=== PATIENT | female | born 1955 | race Caucasian/White ===

== ENCOUNTER 2017-01-27 17:18 | Emergency (ER) | payer OTHER ==
[2017-01-27 20:04] VITALS: BP 150/85
[2017-01-27] MEDS ORDERED: ValACYclovir (*) 1 GM TAB PO ONE (20:27)
[2017-01-27] MEDS ORDERED: Gabapentin CAP(*) 300 MG PO ONE (20:28)
[2017-01-27] MEDS ORDERED: Acyclovir TAB* 400 MG PO ONE ×2 (21:27→21:28)
[2017-01-27] MEDS ORDERED: Acyclovir CAP* 200 MG PO ONE ×3 (21:57→22:17)
--- NOTE | 2017-01-31 06:49 | UC ---
Skin Complaint HPI - HPI Summary HPI Summary: Pt here w/ skin rash x 4 days. Started as a red painful "pimple" on Lt upper thigh. Yesterday, she had more painful "pimples" break out along her lateral thigh and buttock on this side. She has been quite fatigued leading up to this and continues to feel fatigued. No fever, chills, N/V/D. H/o chix pox. Recently , had a dental procedure done which caused a great deal of anxiety for her. No sick contacts. Has not had zoster vaccine. - History of Current Complaint Chief Complaint: UCRash Time Seen by Provider: 01/27/17 20:07 Stated Complaint: RASH W PAIN Hx Obtained From: Patient Hx Last Menstrual Period: uterine ablation Pain Intensity: 2 Pain Scale Used: 0-10 Numeric - Allergy/Home Medications Allergies/Adverse Reactions: Allergies Allergy/AdvReac Type Severity Reaction Status Date / Time No Known Allergies Allergy Verified 01/27/17 20:03 Home Medications: Home Medications Anti-Anxiety Med* PRN 01/27/17 [History] FLUoxetine CAP* [PROzac CAP*] 20 mg PO DAILY 01/27/17 [History Confirmed ] Review of Systems Constitutional: Fatigue - see HPI Skin: Rash - see HPI Eyes: Negative ENT: Negative Respiratory: Negative Cardiovascular: Negative Gastrointestinal: Negative Genitourinary: Negative Motor: Negative Neurovascular: Negative Musculoskeletal: Negative Neurological: Negative Psychological: Anxious All Other Systems Reviewed And Are Negative: Yes PMH/Surg Hx/FS Hx/Imm Hx Previously Healthy: Yes Other History Of: Negative For: Anticoagulant Therapy - Surgical History Surgical History: Yes Surgery Procedure, Year, and Place: 1977 APPENDECTOMY,. 1990 LEFT BREAST BIOPSY ,. 1995 RIGHT SHOULDER ROTATOR CUFF REPAIR, [facility] [place]. 1998 LEFT KNEE MENISCAL TEAR REPAIR, [facility] [place]. 1999 A1 [place] RELEASE RIGHT RING FINGER, [facility] [place]. 2007 UTERINE ABLATION, [place]. 2009 COLONOSCOPY WITH POLYP REMOVAL,. 2010 RIGHT KNEE SYNOVIAL OSTEOMATOSIS, [facility]. 2016 RIGHT WRIST ORIF - Family History Known Family History: Positive: None - Social History Occupation: Employed Full-time Lives: Alone Alcohol Use: Daily Alcohol Amount: 2 glasses a night of wine Substance Use Type: None Smoking Status (MU): Never Smoked Tobacco Household Exposure Type: Cigarettes - Immunization History Most Recent Tetanus Shot: not sure but thinks it is utd Physical Exam Triage Information Reviewed: Yes Appearance: Well-Appearing - although is quite concerned, No Pain Distress, Well -Nourished Vital Signs: Initial Vital Signs Temp 98.5 F 01/27/17 19:57 Pulse 81 01/27/17 19:57 Resp 16 01/27/17 19:57 BP 150/85 01/27/17 19:57 Pulse Ox 98 01/27/17 19:57 Eye Exam: Normal ENT Exam: Normal Neck exam: Normal Neck: Positive: No Lymphadenopathy Respiratory Exam: Normal Cardiovascular Exam: Normal Musculoskeletal Exam: Normal Musculoskeletal: Positive: Strength Intact Neurological Exam: Normal Psychological Exam: Other - anxious Skin: Positive: rashes - erythematous papular/vesicular rash over Lt dermatome L3 - no crusting, no active drainage Course/Dx - Course Course Of Treatment: Pt here w/ new onset rash along dermatome L3 x 4 days w/ new lesions ID'd yesterday. She is within range of anti-viral tx because of most recent lesions. Offered tx initiation here today as pharmacies are closed - ordered valtrex which was later found to be unavailable in our pyxis. Then attempted to order acyclovir however only certain dose was available - when attempted to provide pt w/ a couple of doses to tx her through tomorrow morning when her pharmacy would be open, the pyxi revealed a limited supply. She was hence given a dose here tonight and one for 5 hours from now. She will start valtrex tomorrow morning for better compliance and outcomes. Gabapentin was also rx'd in house tonight for pain to take for neuropathic pain. This was also later found to be unavailable. Many apologies were made to the pt for these oversites and advised to take ibuprofen alternating with acetaminophen until she could potato picker gabapentin tomorrow. Explanation of how to take medication. Pt agrees w/ plan and will f/u w/ PCP later this week. - Diagnoses Provider Diagnoses: HZV, L3 - Physician Notification/Consults Discussed Patient Care With: Dr. Rivas Discharge - Discharge Plan Condition: Stable Disposition: HOME Prescriptions: Gabapentin CAP(*) [Neurontin 300 CAP(*)] 300 mg PO TID PRN #42 cap PRN Reason: Pain ValACYclovir (*) [Valtrex 1 GM(*)] 1 gm PO TID #20 tab Patient Education Materials: Shingles (ED) Forms: *Work Release Referrals: Leila Ruth MD [Primary Care Provider] - Additional Instructions: Rest, fluids, keep area covered. Avoid immunocompromised individuals (ie. women, cancer patients, infants) Start valtrex 5 hours after last acyclovir dose and complete course. You may take gabapentin for pain - if you only need 1 before bed, you do not need to take more. If you need 2 a day but not 3, you do not have to take 3. If pain is not controlled with 2 pills a day, you may take up to 3 pills per day. If you take this routinely for > 1 week, it is important that you taper down. Discuss with PCP. Follow-up with PCP at the end of the week for recheck. Call tomorrow to schedule appointment. *If you develop fever, chills, uncontrolled pain, go to ED
== END 2017-01-27 22:40 | disposition home or self-care (01) ==
LOC: UCEAST 17:18
DX: B02.9 Zoster without complications (principal)
CPT/HCPCS: 99212; A9270-GY; G0463

== ENCOUNTER 2017-04-27 10:34 | Emergency (ER) | payer OTHER ==
[2017-04-27 10:43] VITALS: BP 140/83
[2017-04-27] MEDS ORDERED: Ibuprofen TAB* 600 MG PO ONE (10:52)
--- NOTE | 2017-04-27 12:02 | RAD ---
Edited for charges. HISTORY: Right shoulder pain, status post fall COMPARISONS: None relevant VIEWS: 5, Frontal internal rotation, external rotation, outlet, and axillary views of the right shoulder with lateral views of the right scapula FINDINGS: BONE DENSITY: Normal. BONES: There is no displaced fracture. JOINTS: There is no arthropathy. ALIGNMENT: There is no dislocation. SOFT TISSUES: There are soft tissue calcifications along the greater tuberosity of the right humerus. OTHER FINDINGS: None. IMPRESSION: 1. SOFT TISSUE CALCIFICATIONS SUGGESTIVE OF A CALCIFIC TENDINOPATHY. 2. NO ACUTE OSSEOUS INJURY TO THE RIGHT SHOULDER OR TO THE RIGHT SCAPULA. IF SYMPTOMS PERSIST, RECOMMEND REPEAT IMAGING MTDD
--- NOTE | 2017-04-27 13:04 | UC ---
Edson Taylor Angela, scribed for Ramiro Cooley MD on 04/27/17 at 1056 . Upper Extremity HPI - HPI Summary HPI Summary: This pt is a 62 y/o female presenting to [facility] c/o right shoulder and right scapula pain s/p mechanical fall last night. Pt reports she was at a campfire and went to get another log in the log pile and tripped over a piece of furniture. She states she first hit her shoulder and heard a pop in her shoulder , landing flat on her back. Pt notes her pain radiates from her right shoulder up to her right side of neck. Her pain is aggravated by shoulder movement. Pt denies head strike, forearms pain, elbow pain, headache, SOB, chest pain. She has not taken any pain medications. PMHx: right shoulder rotator cuff repair. She is currently on Prozac. - History of Current Complaint Chief Complaint: UCUpperExtremity Stated Complaint: SHOULDER INJURY Hx Obtained From: Patient Hx Last Menstrual Period: uterine ablation Onset/Duration: Sudden Onset - s/p mechanical fall Pain Intensity: 8 Pain Scale Used: 0-10 Numeric Location Of Pain: Radiates To - right side of neck Aggravating Factor(s): Movement Alleviating Factor(s): Nothing Associated Signs And Symptoms: Positive: Other - NEGATIVE: headache, SOB, chest pain. Negative: Fever, Numbness/Tingling - Allergies/Home Medications Allergies/Adverse Reactions: Allergies Allergy/AdvReac Type Severity Reaction Status Date / Time No Known Allergies Allergy Verified 04/27/17 10:38 PMH/Surg Hx/FS Hx/Imm Hx Other Cardiovascular History: Heart murmurs, palpitations Other History Of: Negative For: Anticoagulant Therapy - Surgical History Surgical History: Yes Surgery Procedure, Year, and Place: 1977 APPENDECTOMY,. 1990 LEFT BREAST BIOPSY ,. 1995 RIGHT SHOULDER ROTATOR CUFF REPAIR, [facility] [place]. 1998 LEFT KNEE MENISCAL TEAR REPAIR, [facility] [place]. 1999 A1 [place] RELEASE RIGHT RING FINGER, [facility]. 2007 UTERINE ABLATION, [place]. 2009 COLONOSCOPY WITH POLYP REMOVAL,. 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 2016 RIGHT WRIST ORIF - Family History Known Family History: Positive: None - Social History Alcohol Use: Daily Alcohol Amount: 2 glasses a night of wine Substance Use Type: None Smoking Status (MU): Never Smoked Tobacco Household Exposure Type: Cigarettes - Immunization History Most Recent Tetanus Shot: not sure but thinks it is utd Review of Systems Constitutional: Negative Skin: Negative Eyes: Negative ENT: Negative Respiratory: Negative Cardiovascular: Negative Gastrointestinal: Negative Motor: Decreased ROM - at right shoulder Musculoskeletal: Other: - POSITIVE:right shoulder pain, right scapula pain Neurological: Negative Psychological: Negative All Other Systems Reviewed And Are Negative: Yes Physical Exam Triage Information Reviewed: Yes Vital Signs: Initial Vital Signs Temp 98.2 F 04/27/17 10:39 Pulse 80 04/27/17 10:39 Resp 16 04/27/17 10:39 BP 140/83 04/27/17 10:39 Pulse Ox 100 04/27/17 10:39 Vital Signs Reviewed: Yes - Additional Comments General: well-appearing, no pain distress Skin: warm, color reflects adequate perfusion, dry Head: normal Eyes: EOMI, [place] ENT: normal Neck: supple, nontender Respiratory: CTA, breath sounds present Cardiovascular: RRR Musculoskeletal: RUE: good ROM of hand, no tenderness in hand, wrist, and elbow. Clavicle is nontender. Pt is tender at right shoulder joint and upper border of right scapula. Neurological: normal, sensory/motor intact, A&O x3 Psychological: affect/mood appropriate Diagnostics - Radiology Right Shoulder XR Xray Interpretation: Positive (See Comments) - IMPRESSION: 1. Soft tissue calcifications suggestive of a calcific tendinopathy. 2. No acute osseous injury to the right shoulder or to the right scapula. If symptoms persist, recommend repeat imaging. ED physician has reviewed this radiology report and agrees. Radiology Interpretation Completed By: Radiologist Right Scapula XR Xray Interpretation: Positive (See Comments) - IMPRESSION: 1. Soft tissue calcifications suggestive of a calcific tendinopathy. 2. No acute osseous injury to the right shoulder or to the right scapula. If symptoms persist, recommend repeat imaging. ED physician has reviewed this radiology report and agrees. Radiology Interpretation Completed By: Radiologist Upper Extremity Course/Dx - Course Course Of Treatment: This pt is a 62 y/o female presenting to [facility] c/o right shoulder pain s/p mechanical fall last night. Pt reports she was at a campfire and went to get another log in the log pile and tripped over a piece of furniture. She states she first hit her shoulder and heard a pop in her shoulder , landing flat on her back. Pt notes her pain radiates from her right shoulder up to her right scapula and right side of neck. Her pain is aggravated by shoulder movement. Pt denies head strike, forearms pain, elbow pain, headache, SOB, chest pain. She has not taken any pain medications. PMHx: right shoulder rotator cuff repair. She is currently on Prozac. XR of shoulder and scapula show 1. Soft tissue calcifications suggestive of a calcific tendinopathy. 2. No acute osseous injury to the right shoulder or to the right scapula. If symptoms persist, recommend repeat imaging. ED physician has reviewed this radiology report and agrees. Elevated BP noted and advised to follow up with PCP. Medications reviewed. DISCUSSED X-RAY RESULTS. PATIENT WILL F/U WITH PMD AND THEN DETERMINE IF PT/ORTHO REFERAL IS ALSO NEEDED. MEDICATIONS REVIEWED. - Differential Dx/Diagnosis Provider Diagnoses: RIGHT SHOULDER/ROTATOR CUFF INJURY Discharge - Discharge Plan Condition: Stable Disposition: HOME Prescriptions: HYDROcodone/ACETAMIN 5-325 MG* [[place] 5-325 TAB*] 1 tab PO Q4H PRN #20 tab MDD 6 PRN Reason: Pain Naproxen Sodium [Naproxen Sodium ER 500 MG TAB] 500 mg PO BID PRN #20 tab PRN Reason: Pain Patient Education Materials: Rotator Cuff Injury (ED) Referrals: Leila Ruth MD [Primary Care Provider] - Additional Instructions: FOLLOW UP WITH YOUR DOCTOR. GET RECHECKED FOR ANY WORSENING OF YOUR CONDITION OR QUESTIONS OR CONCERNS. The documentation as recorded by the Edson roberts Angela accurately reflects the service I personally performed and the decisions made by me, Ramiro Cooley MD.
== END 2017-04-27 12:24 | disposition home or self-care (01) ==
LOC: UCEAST 10:34
DX: S46.091A Other injury of muscle(s) and tendon(s) of the rotator cuff of right shoulder, initial encounter (principal); W01.0XXA Fall on same level from slipping, tripping and stumbling without subsequent striking against object, initial encounter
CPT/HCPCS: 99212; A9270-GY; G0463

== ENCOUNTER 2017-06-23 16:57 | Emergency (ER) | payer OTHER ==
[2017-06-23 17:03] VITALS: BP 158/85
--- NOTE | 2017-06-23 17:11 | UC ---
Bite Injury/Animal HPI - HPI Summary HPI Summary: 62 belinda old female presents with complains of a tick bite on her stomach. - History of Current Complaint Chief Complaint: VIRAkin Stated Complaint: TICK BITE Time Seen by Provider: 06/23/17 17:08 Hx Obtained From: Patient Hx Last Menstrual Period: uterine ablation Severity Currently: Moderate Severity Initially: Moderate Onset/Duration: Sudden Onset Type of Bite: Animal - tick - Allergies/Home Medications Allergies/Adverse Reactions: Allergies Allergy/AdvReac Type Severity Reaction Status Date / Time No Known Allergies Allergy Verified 06/23/17 17:03 PMH/Surg Hx/FS Hx/Imm Hx Other History Of: Negative For: Anticoagulant Therapy - Surgical History Surgical History: Yes Surgery Procedure, Year, and Place: 1977 APPENDECTOMY,. 1990 LEFT BREAST BIOPSY ,. 1995 RIGHT SHOULDER ROTATOR CUFF REPAIR, [facility] [place]. 1998 LEFT KNEE MENISCAL TEAR REPAIR, [facility] [place]. 1999 A1 [place] RELEASE RIGHT RING FINGER, [facility] [place]. 2007 UTERINE ABLATION, [place]. 2009 COLONOSCOPY WITH POLYP REMOVAL,. 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 2016 RIGHT WRIST ORIF - Family History Known Family History: Positive: None - Social History Alcohol Use: Daily Alcohol Amount: 2 glasses a night of wine Substance Use Type: Prescribed Smoking Status (MU): Never Smoked Tobacco Household Exposure Type: Cigarettes - Immunization History Most Recent Tetanus Shot: not sure but thinks it is utd Review of Systems Constitutional: Negative Skin: Rash, Other - [place] bite Eyes: Negative ENT: Negative Respiratory: Negative Cardiovascular: Negative Gastrointestinal: Negative Genitourinary: Negative Motor: Negative Neurovascular: Negative Musculoskeletal: Negative Neurological: Negative Psychological: Negative All Other Systems Reviewed And Are Negative: Yes Physical Exam Triage Information Reviewed: Yes Vital Signs: Initial Vital Signs Temp 36.4 C 06/23/17 17:00 Pulse 89 06/23/17 17:00 Resp 12 06/23/17 17:00 BP 158/85 06/23/17 17:00 Pulse Ox 100 06/23/17 17:00 Vital Signs Reviewed: Yes Eye Exam: Normal ENT Exam: Normal Dental Exam: Normal Neck exam: Normal Neck: Positive: 1 Respiratory Exam: Normal Cardiovascular Exam: Normal Abdominal Exam: Normal Musculoskeletal Exam: Normal Neurological Exam: Normal Psychological Exam: Normal Skin: Positive: rashes - tick bite Bite Injury Course/Dx - Differential Dx/Diagnosis Provider Diagnoses: tick bite. rash Discharge - Discharge Plan Condition: Stable Disposition: HOME Patient Education Materials: Lyme Disease (ED), Tick Bite (ED) Referrals: Leila Ruth MD [Primary Care Provider] -
[2017-06-23] MEDS ORDERED: DOXYcycline CAP(*) 100 MG PO ONE (17:13)
[2017-06-24 11:21] LABS: Hematocrit 40 % (35-47); Hemoglobin 13.1 g/dl (12.0-16.0); Mean Corpuscular HGB Conc 33 g/dl (31-36); Mean Corpuscular Hemoglobin 32 pg (27-31); Mean Corpuscular Volume 96 fL (80-97); Mean Platelet Volume 11 um3 (7.4-10.4); Red Blood Count 4.13 10^6/ul (4.0-5.4); Red Cell Distribution Width 13 % (10.5-15); White Blood Count 6.6 10^3/ul (3.5-10.8)
[2017-06-24 11:28] LABS: Albumin 4.4 g/dL (3.2-5.2); BUN/Creatinine Ratio 30.2 (8-20); Calcium 9.8 mg/dL (8.6-10.3); EGFR Non-African American 96.4 (>60); Globulin 2.5 g/dL (2-4); Total Bilirubin 0.4 mg/dL (0.2-1.0); Total Protein 6.9 g/dL (6.4-8.9)
--- NOTE | 2017-06-24 18:42 | UC ---
Progress - Progress Note Progress Note: no acute changes.
== END 2017-06-23 17:49 | disposition home or self-care (01) ==
LOC: UCEAST 16:57
DX: S30.861A Insect bite (nonvenomous) of abdominal wall, initial encounter (principal); R21 Rash and other nonspecific skin eruption; W57.XXXA Bitten or stung by nonvenomous insect and other nonvenomous arthropods, initial encounter; Y93.9 Activity, unspecified; Y92.9 Unspecified place or not applicable; Z77.22 Contact with and (suspected) exposure to environmental tobacco smoke (acute) (chronic)
CPT/HCPCS: 36415; 80053; 85025; 86618; 99212; A9270-GY; G0463

== ENCOUNTER 2019-01-17 09:21 | Emergency (ER) | payer OTHER ==
[2019-01-17 09:31] VITALS: BP 163/96
--- NOTE | 2019-01-17 09:39 | UC ---
Hand/Wrist HPI - HPI Summary HPI Summary: 63 yo female s/p jcarlos injjury left wrist yesterday severe pain with attempts to move it she is right haded has not taken anything for pain - History Of Current Complaint Chief Complaint: UCUpperExtremity Stated Complaint: WRIST INJURY Time Seen by Provider: 01/17/19 09:35 Hx Obtained From: Patient Hx Last Menstrual Period: uterine ablation Onset/Duration: Sudden Onset Severity Initially: Severe Severity Currently: Severe Pain Intensity: 8 - with movement Pain Scale Used: 0-10 Numeric Character Of Pain: Sharp, Aching Aggravating Factor(s): Movement Alleviating Factor(s): Rest Associated Signs And Symptoms: Positive: Swelling Related History: Dominant Hand Right Hands: 1 - tender/swollen, distal n/v intact - Allergies/Home Medications Allergies/Adverse Reactions: Allergies Allergy/AdvReac Type Severity Reaction Status Date / Time No Known Allergies Allergy Verified 01/17/19 09:32 PMH/Surg Hx/FS Hx/Imm Hx Previously Healthy: Yes Other History Of: Negative For: Anticoagulant Therapy - Surgical History Surgical History: Yes Surgery Procedure, Year, and Place: 1977 APPENDECTOMY,. 1990 LEFT BREAST BIOPSY ,. 1995 RIGHT [place]OULD[place] ROTATOR CU[place] [facility] [place]. 1998 LEFT KNEE MENISCAL TEAR [place]PAIR[place] [facility] [place]. 1999 A1 [place] RELEASE RIGHT RING FINGER, [facility] [place]. 2007 UTERINE ABLATION, [place]. 2009 COLONOSCOPY WITH POLYP REMOVAL,. 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 2016 RIGHT WRIST ORIF - Family History Known Family History: Positive: Non-Contributory - Social History Alcohol Use: Daily Alcohol Amount: 2 glasses a night of wine Substance Use Type: None Smoking Status (MU): Never Smoked Tobacco Household Exposure Type: Cigarettes - Immunization History Most Recent Tetanus Shot: not sure but thinks it is utd Review of Systems All Other Systems Reviewed And Are Negative: Yes Constitutional: Positive: Negative Skin: Positive: Negative Eyes: Positive: Negative ENT: Positive: Negative Respiratory: Positive: Negative Cardiovascular: Positive: Negative Gastrointestinal: Positive: Negative Genitourinary: Positive: Negative Motor: Positive: Negative Neurovascular: Positive: Negative Musculoskeletal: Positive: Arthralgia - left wrist Neurological: Positive: Negative Psychological: Positive: Negative Physical Exam Triage Information Reviewed: Yes Appearance: Well-Appearing, No Pain Distress, Well-Nourished Vital Signs: Initial Vital Signs Temp 100.3 F 01/17/19 09:27 Pulse 97 01/17/19 09:27 Resp 18 01/17/19 09:27 BP 163/96 01/17/19 09:27 Pulse Ox 98 01/17/19 09:27 Vital Signs Reviewed: Yes Eyes: Positive: Conjunctiva Clear ENT: Positive: Hearing grossly normal. Negative: Nasal congestion, Nasal drainage, Trismus, Muffled voice, Dental tenderness Dental Exam: Normal Neck: Positive: Supple Respiratory: Positive: Lungs clear, Normal breath sounds, No respiratory distress, No accessory muscle use Cardiovascular: Positive: RRR, No Murmur Musculoskeletal: Positive: ROM Limited @ - left wrist, Edema @ - overlying left distal radius Neurological: Positive: Alert Psychological Exam: Normal Skin Exam: Normal Procedures - Procedure Summary Procedure Summary: left UE sugar tong splint applied by me - Splinting Left Upper Extremity Hand-Made Type: orthoglass Splint: sugar-tong Pre-Proc Neuro Vasc Exam: normal Post-Proc Neuro Vasc Exam: normal Diagnostics - Radiology No standard instances Radiology Interpretation Completed By: Radiologist Summary of Radiographic Findings: distal radius rx, transverse and non displaced Hand/Wrist Course/Dx - Differential Dx/Diagnosis Provider Diagnosis: Nondisplaced fracture of distal end of left radius, Elevated BP without diagnosis of hypertension Discharge - Sign-Out/Discharge Documenting (check all that apply): Patient Departure All imaging exams completed and their final reports reviewed: Yes - Discharge Plan Condition: Improved Disposition: HOME Prescriptions: HYDROcodone/ACETAMIN 5-325 MG* [[place] 5-325 TAB*] 1 tab PO Q4H PRN #15 tab MDD 4 PRN Reason: Pain Patient Education Materials: Wrist Fracture in Adults (ED) Referrals: Alonso Benavides MD [Medical Doctor] - As Soon As Possible Additional Instructions: BP recheck in 2-12 weeks with your MD Don't take narcotic and drive May cause drowsiness Take only for severe pain not controlled by advil or aleve - Billing Disposition and Condition Condition: IMPROVED Disposition: Home
[2019-01-17] MEDS ORDERED: Ibuprofen TAB* 600 MG PO ONE (10:12)
== END 2019-01-17 10:55 | disposition home or self-care (01) ==
LOC: UCEAST 09:21
DX: S52.502A Unspecified fracture of the lower end of left radius, initial encounter for closed fracture (principal); W19.XXXA Unspecified fall, initial encounter; Y92.9 Unspecified place or not applicable; R03.0 Elevated blood-pressure reading, without diagnosis of hypertension
CPT/HCPCS: 25600; 99213; A9270-GY; G0463